=== PATIENT | female | born 1960 | race African-American/Black ===

== ENCOUNTER 2017-03-12 09:41 | Inpatient (IN) | payer MEDICAID, OTHER ==
[~2017-03-12] VITALS: Ht 149.9 cm; Wt 50.3 kg
[~2017-03-12 09:41] MED LIST: ASPI-825 PO; ATEN50TA PO; CLON0.3T PO; HYDR25TA PO; ISOS30TA6 PO; NITR0.4T10 SL; OLAN5TAB2 PO; QUET200T PO
[2017-03-12 12:02] LABS: BASOPHILS % (AUTO) 0.5 % (0.0-2.0); EOSINOPHILS % (AUTO) 2.5 % (1.0-6.0); HEMATOCRIT 36.4 % (36-46); HEMOGLOBIN 12.5 g/dL (12.0-16.0); LYMPHOCYTES # (AUTO) 2.6 K/uL (1.0-4.8); LYMPHOCYTES % (AUTO) 32.8 % (22.0-44.0); MEAN CORPUSCULAR HEMOGLOBIN 32.1 pg (26.0-34.0); MEAN CORPUSCULAR HGB CONC 34.4 G/dL (31.0-37.0); MEAN CORPUSCULAR VOLUME 93 fL (80-100); MONOCYTES # (AUTO) 0.7 K/uL (0.1-1.0); MONOCYTES % (AUTO) 8.4 % (2.0-9.0); NEUTROPHILS # (AUTO) 4.5 K/uL (1.8-7.7); NEUTROPHILS % (AUTO) 55.8 % (40.0-70.0); PLATELET COUNT (AUTO) 333 K/uL (150-450); RED CELL DISTRIBUTION WIDTH 15.1 % (11.5-14.5); WHITE BLOOD COUNT (AUTO) 8.1 K/uL (4.5-11.0)
[2017-03-12 12:03] LABS: APPEARANCE,URINE CLEAR (CLEAR); GLUCOSE, URINE (UA) NEGATIVE (NEGATIVE); KETONES,URINE NEGATIVE (NEGATIVE); LEUKOCYTE ESTERASE ,URINE SMALL (NEGATIVE); OCCULT BLOOD,URINE NEGATIVE (NEGATIVE); PH,URINE 5.5 (5.0-8.0); PROTEIN,URINE NEGATIVE (NEGATIVE)
[2017-03-12 12:12] LABS: ADD UA MICROSCOPIC YES
[2017-03-12 12:14] LABS: INR 0.9 (0.9-1.1); PROTHROMBIN TIME 9.7 SEC (9.4-11.6)
[2017-03-12 12:27] LABS: ANION GAP 14 mmol/L (8-16); CALCIUM, TOTAL 9.3 mg/dL (8.8-10.5); CARBON DIOXIDE 19 mmol/L (22-29); CHLORIDE 107 mmol/L (98-107); CREATININE 1.99 mg/dL (0.60-1.30); GLOMERULAR FILTR. RATE CALC 31 mL/min (>60); POTASSIUM 3.9 mmol/L (3.5-5.1); SODIUM SERUM 140 mmol/L (136-145); UREA NITROGEN, BLOOD 33 mg/dL (7-18)
[2017-03-12 12:28] LABS: RBC,URINE None Seen /HPF (0-2); SQUAMOUS EPITHELIAL CELL,UR None Seen /LPF (None Seen)
[2017-03-12] MEDS ORDERED: SODIUM CHLORIDE 0.9% 500 ML IV ONE (12:45)
[2017-03-12 12:46] LABS: ALANINE AMINOTRANSFERASE 69 U/L (12-78); ALBUMIN 3.9 g/dL (3.4-5.0); ASPARTATE AMINOTRANSFERASE 35 U/L (15-37); BILIRUBIN,TOTAL 0.2 mg/dL (0.1-1.0); CREATINE KINASE MB 0.7 ng/mL (0-5); CREATINE KINASE, TOTAL 163 U/L (26-192); TOTAL PROTEIN, SERUM 8.8 g/dL (6.4-8.2)
[2017-03-12] MEDS ORDERED: ALBUTEROL SULFATE 2.5 MG/0.5 ML NEB SOLUTION NEB PRN (13:45)
[2017-03-12] MEDS ORDERED: ONDANSETRON HCL 4 MG/2 ML VIAL IVP PRN (13:45)
[2017-03-12] MEDS ORDERED: MAGNESIUM HYDROXIDE SUSPENSION 30 ML UDCUP PO PRN (13:45)
[2017-03-12 13:50] LABS: THYROID STIMULATING HORMONE 0.85 uIU/mL (0.36-3.74)
[2017-03-12 15:29] VITALS: BP 118/64
[2017-03-12] MEDS: HEPARIN SODIUM,PORCINE 5,000 UNITS/ML VIAL SQ SCH ×2 (16:56→23:30)
[2017-03-12 19:34] VITALS: BP 120/69
[2017-03-12] MEDS: DOCUSATE SODIUM 100 MG CAPSULE PO SCH (21:00)
[2017-03-12] MEDS ORDERED: DiphenhydrAMINE HCL 25 MG CAPSULE PO PRN (21:30)
[2017-03-12] MEDS ORDERED: OLANZapine 7.5 MG TABLET PO SCH (21:30)
[2017-03-12] MEDS: ALPRAZolam 0.25 MG TABLET PO SCH (21:42)
[2017-03-12] MEDS: QUEtiapine FUMARATE 200 MG TABLET PO SCH (21:43)
[2017-03-12] MEDS: MIRTAZAPINE 15 MG TABLET PO SCH (22:01)
[2017-03-12 23:51] VITALS: BP 85/47
[2017-03-13] VITALS (10 sets, daily range): BP systolic 90–110; BP diastolic 50–71
[2017-03-13] MEDS ORDERED: DILT120T PO (02:34)
[2017-03-13] MEDS ORDERED: MEGE40TA PO (02:47)
[2017-03-13] MEDS ORDERED: VITAD1000 PO (02:47)
[2017-03-13] MEDS ORDERED: NITR0.4T50 SL (02:47)
[2017-03-13] MEDS ORDERED: LISI-618 PO (02:47)
[2017-03-13] MEDS ORDERED: MIRT15 PO (02:47)
[2017-03-13] MEDS ORDERED: ALPR0.5T8 PO (02:47)
[2017-03-13] MEDS ORDERED: DIPH25CA85 PO (02:47)
[2017-03-13] MEDS ORDERED: LEVO50 PO (02:47)
[2017-03-13] MEDS ORDERED: BENA20TA3 PO (02:47)
[2017-03-13] MEDS ORDERED: METO100XL PO (02:47)
[2017-03-13] MEDS ORDERED: FURO20TA4 PO (02:47)
[2017-03-13] MEDS: HEPARIN SODIUM,PORCINE 5,000 UNITS/ML VIAL SQ SCH ×2 (08:00→16:00)
[2017-03-13] MEDS: DOCUSATE SODIUM 100 MG CAPSULE PO SCH ×2 (09:00→20:44)
[2017-03-13] MEDS: PANTOPRAZOLE SODIUM 40 MG DR TABLET PO SCH (09:04)
[2017-03-13] MEDS: ALPRAZolam 0.25 MG TABLET PO SCH ×2 (09:04→20:45)
[2017-03-13] MEDS: ACETAMINOPHEN 325 MG TABLET PO PRN (17:58)
[2017-03-13] MEDS: QUEtiapine FUMARATE 200 MG TABLET PO SCH (20:44)
[2017-03-13] MEDS: MIRTAZAPINE 15 MG TABLET PO SCH (20:45)
[2017-03-13] MEDS ORDERED: OLANZapine 5 MG TABLET PO SCH (21:00)
[2017-03-14 00:10] VITALS: BP 92/61
[2017-03-14] MEDS: HEPARIN SODIUM,PORCINE 5,000 UNITS/ML VIAL SQ SCH ×2 (00:18→08:00)
[2017-03-14 04:19] VITALS: BP 98/58
[2017-03-14 06:33] LABS: EOSINOPHILS % (AUTO) 3.5 % (1.0-6.0); HEMATOCRIT 32.6 % (36-46); HEMOGLOBIN 11.1 g/dL (12.0-16.0); LYMPHOCYTES # (AUTO) 2.6 K/uL (1.0-4.8); MEAN CORPUSCULAR HEMOGLOBIN 32.3 pg (26.0-34.0); MEAN CORPUSCULAR HGB CONC 34.1 G/dL (31.0-37.0); MEAN CORPUSCULAR VOLUME 95 fL (80-100); MONOCYTES # (AUTO) 0.8 K/uL (0.1-1.0); MONOCYTES % (AUTO) 12.4 % (2.0-9.0); NEUTROPHILS # (AUTO) 2.5 K/uL (1.8-7.7); NEUTROPHILS % (AUTO) 41.1 % (40.0-70.0); PLATELET COUNT (AUTO) 265 K/uL (150-450); RED BLOOD CELL COUNT(AUTO) 3.44 MIL/uL (4.00-5.20); RED CELL DISTRIBUTION WIDTH 15.1 % (11.5-14.5); WHITE BLOOD COUNT (AUTO) 6.2 K/uL (4.5-11.0)
[2017-03-14 07:00] LABS: ALBUMIN 2.8 g/dL (3.4-5.0); BILIRUBIN,TOTAL 0.1 mg/dL (0.1-1.0); CALCIUM, TOTAL 8.3 mg/dL (8.8-10.5); CREATININE 1.64 mg/dL (0.60-1.30); POTASSIUM 3.7 mmol/L (3.5-5.1); TOTAL PROTEIN, SERUM 6.3 g/dL (6.4-8.2)
[2017-03-14 07:38] VITALS: BP 128/75
[2017-03-14 08:38] VITALS: BP 124/81
[2017-03-14] MEDS ORDERED: IOHEXOL 300 MG/ML 50 ML VIAL ONE (08:38)
[2017-03-14] MEDS ORDERED: LIDOCAINE HCL/PF 1% 30 ML VIAL ONE (08:38)
[2017-03-14] MEDS ORDERED: FentaNYL CITRATE-PF 100 MCG/2 ML VIAL ONE ×2 (08:39→09:37)
[2017-03-14] MEDS ORDERED: MIDAZOLAM HCL 2 MG/2 ML VIAL ONE ×2 (08:39→09:37)
[2017-03-14] MEDS: DOCUSATE SODIUM 100 MG CAPSULE PO SCH (08:41)
[2017-03-14] MEDS ORDERED: SODIUM CHLORIDE 0.9% 500 ML IV ONE (09:05)
[2017-03-14] MEDS ORDERED: FentaNYL CITRATE-PF 100 MCG/2 ML VIAL IVP ONE ×2 (09:25→09:31)
[2017-03-14] MEDS ORDERED: MIDAZOLAM HCL 2 MG/2 ML VIAL IVP ONE ×2 (09:25→09:31)
[2017-03-14] MEDS ORDERED: LIDOCAINE HCL/PF 1% 30 ML VIAL INJ ONE (09:31)
[2017-03-14 09:54] VITALS: BP 142/76
[2017-03-14] MEDS: ALPRAZolam 0.25 MG TABLET PO SCH (10:35)
[2017-03-14] MEDS: PANTOPRAZOLE SODIUM 40 MG DR TABLET PO SCH (10:35)
[2017-03-14 11:54] VITALS: BP 129/73
[2017-03-14] MEDS: ACETAMINOPHEN 325 MG TABLET PO PRN ×2 (13:11→14:21)
[2017-03-14] MEDS ORDERED: HYDROCODONE/ACETAMINOPHEN 5-325 MG TABLET PO PRN (14:30)
[2017-03-14] MEDS ORDERED: CeFAZolin 1 GM/DEXTROSE 50 ML IV ONE (15:00)
== END 2017-03-14 14:45 | disposition home or self-care (01) | DRG 201 ==
LOC: EMS 09:42 → 5N 13:16
PROVIDERS: ADMIT Internal Medicine; ATTEND Internal Medicine
PROC: 0JH632Z Insertion of Monitoring Device into Chest Subcutaneous Tissue and Fascia, Percutaneous Approach (ICD-10-PCS; principal; 2017-03-14)
DX: I49.9 Cardiac arrhythmia, unspecified (principal); N17.9 Acute kidney failure, unspecified; E44.0 Moderate protein-calorie malnutrition; I49.5 Sick sinus syndrome; I13.0 Hypertensive heart and chronic kidney disease with heart failure and stage 1 through stage 4 chronic kidney disease, or unspecified chronic kidney disease; I50.9 Heart failure, unspecified; N18.3 Chronic kidney disease, stage 3 (moderate); F20.9 Schizophrenia, unspecified; I35.1 Nonrheumatic aortic (valve) insufficiency; B19.20 Unspecified viral hepatitis C without hepatic coma; J44.9 Chronic obstructive pulmonary disease, unspecified; F31.9 Bipolar disorder, unspecified; E78.00 Pure hypercholesterolemia, unspecified; E03.9 Hypothyroidism, unspecified; F17.210 Nicotine dependence, cigarettes, uncomplicated; Z90.49 Acquired absence of other specified parts of digestive tract; Z88.8 Allergy status to other drugs, medicaments and biological substances; Z88.5 Allergy status to narcotic agent; Z79.899 Other long term (current) drug therapy; Z79.82 Long term (current) use of aspirin; Z89.422 Acquired absence of other left toe(s); Z91.19 Patient's noncompliance with other medical treatment and regimen; Z68.22 Body mass index [BMI] 22.0-22.9, adult
CPT/HCPCS: 33282; 70450; 83735; 84443; 93005; 93306; 96360; 96361; 99285; J0690; J1644; J2250; J3010; J3490; J7040; Q9967

== ENCOUNTER 2017-06-02 15:44 | Inpatient (IN) | payer MEDICAID ==
[~2017-06-02] VITALS: Ht 149.9 cm; Wt 54.5 kg
[~2017-06-02 15:44] MED LIST changes: +ALPR0.5T8 PO; -ATEN50TA PO; -CLON0.3T PO; +DIPH25CA85 PO; -HYDR25TA PO; -ISOS30TA6 PO; +LEVO50 PO; +MIRT15 PO; -NITR0.4T10 SL; -OLAN5TAB2 PO; +VITAD1000 PO
[2017-06-02] MEDS ORDERED: SODIUM CHLORIDE 0.9% 1,000 ML IV ONE ×2 (16:00→16:15)
[2017-06-02 16:38] LABS: BASOPHILS % (AUTO) 0.5 % (0.0-2.0); EOSINOPHILS % (AUTO) 11.8 % (1.0-6.0); HEMATOCRIT 39.1 % (36-46); HEMOGLOBIN 13.2 g/dL (12.0-16.0); LYMPHOCYTES # (AUTO) 2.1 K/uL (1.0-4.8); LYMPHOCYTES % (AUTO) 15.2 % (22.0-44.0); MEAN CORPUSCULAR HEMOGLOBIN 31.7 pg (26.0-34.0); MEAN CORPUSCULAR HGB CONC 33.7 G/dL (31.0-37.0); MEAN CORPUSCULAR VOLUME 94 fL (80-100); MONOCYTES # (AUTO) 1.3 K/uL (0.1-1.0); MONOCYTES % (AUTO) 9.4 % (2.0-9.0); NEUTROPHILS # (AUTO) 8.6 K/uL (1.8-7.7); NEUTROPHILS % (AUTO) 63.1 % (40.0-70.0); PLATELET COUNT (AUTO) 329 K/uL (150-450); RED BLOOD CELL COUNT(AUTO) 4.16 MIL/uL (4.00-5.20); RED CELL DISTRIBUTION WIDTH 15.2 % (11.5-14.5)
[2017-06-02 16:59] LABS: ANION GAP 16 mmol/L (8-16); CALCIUM, TOTAL 9.5 mg/dL (8.8-10.5); CARBON DIOXIDE 15 mmol/L (22-29); CHLORIDE 100 mmol/L (98-107); CREATININE 3.29 mg/dL (0.60-1.30); GLOMERULAR FILTR. RATE CALC 17 mL/min (>60); GLUCOSE,RANDOM 88 mg/dL (70-110); POTASSIUM 4.5 mmol/L (3.5-5.1); SODIUM SERUM 131 mmol/L (136-145); UREA NITROGEN, BLOOD 39 mg/dL (7-18)
[2017-06-02 17:07] LABS: LACTIC ACID 1.6 mmol/L (0.4-2.0)
[2017-06-02 17:15] LABS: PROTHROMBIN TIME 10.2 SEC (9.4-11.6)
[2017-06-02 17:23] LABS: ALANINE AMINOTRANSFERASE 27 U/L (12-78); ALBUMIN 3.4 g/dL (3.4-5.0); ALKALINE PHOSPHATASE 136 U/L (46-116); ASPARTATE AMINOTRANSFERASE 20 U/L (15-37); BILIRUBIN,TOTAL 0.1 mg/dL (0.1-1.0); CREATINE KINASE MB 1.4 ng/mL (0-5); CREATINE KINASE, TOTAL 160 U/L (26-192); LIPASE 471 U/L (73-393); TOTAL PROTEIN, SERUM 8.7 g/dL (6.4-8.2)
[2017-06-02 17:43] LABS: B-TYPE NATRIURETIC PEPTIDE 16 pg/mL (0-100)
[2017-06-02] MEDS ORDERED: BARIUM SULFATE 0.1% SUSPENSION 450 ML BOTTLE PO ONE (18:00)
[2017-06-02 18:09] LABS: BILIRUBIN,URINE NEGATIVE (NEGATIVE); GLUCOSE, URINE (UA) NEGATIVE (NEGATIVE); KETONES,URINE NEGATIVE (NEGATIVE); LEUKOCYTE ESTERASE ,URINE MODERATE (NEGATIVE); NITRATE,URINE NEGATIVE (NEGATIVE); OCCULT BLOOD,URINE NEGATIVE (NEGATIVE); PH,URINE 5.5 (5.0-8.0); PROTEIN,URINE NEGATIVE (NEGATIVE); UROBILINOGEN,URINE 0.2 mg/dL (<=1.0)
[2017-06-02 18:27] LABS: APPEARANCE,URINE SLIGHTLY CLOUDY (CLEAR); BACTERIA,URINE Few /HPF (None Seen); RBC,URINE None Seen /HPF (0-2); SQUAMOUS EPITHELIAL CELL,UR Moderate /LPF (None Seen)
[2017-06-02] MEDS ORDERED: 0.9% SODIUM CHLORIDE 10 ML SYRINGE IVP PRN (21:30)
[2017-06-02] MEDS ORDERED: ACETAMINOPHEN 325 MG TABLET PO PRN (21:30)
[2017-06-02] MEDS ORDERED: ONDANSETRON HCL 4 MG/2 ML VIAL IVP PRN (21:30)
[2017-06-03] MEDS ORDERED: CIPROFLOXACIN 400 MG/D5% WATER 200 ML IV ONE (03:30)
[2017-06-03] MEDS ORDERED: ACETAMINOPHEN 325 MG TABLET PO PRN (03:30)
[2017-06-03] MEDS: LEVOTHYROXINE SODIUM 50 MCG TABLET PO SCH (06:33)
[2017-06-03] MEDS: ALPRAZolam 0.5 MG TABLET PO SCH ×2 (10:37→20:31)
[2017-06-03] MEDS: ASPIRIN 81 MG CHEWABLE TABLET PO SCH (10:38)
[2017-06-03] MEDS ORDERED: ONDANSETRON HCL 4 MG/2 ML VIAL IVP PRN (11:00)
[2017-06-03 11:06] LABS: BASOPHILS # (AUTO) 0.06 K/uL (0.00-0.20); BASOPHILS % (AUTO) 0.6 % (0.0-2.0); EOSINOPHILS # (AUTO) 1.38 K/uL (0.00-0.70); EOSINOPHILS % (AUTO) 12.92 % (1.0-6.0); HEMATOCRIT 34.8 % (36-46); HEMOGLOBIN 11.4 g/dL (12.0-16.0); LYMPHOCYTES # (AUTO) 1.8 K/uL (1.0-4.8); LYMPHOCYTES % (AUTO) 17.2 % (22.0-44.0); MEAN CORPUSCULAR HGB CONC 32.8 G/dL (31.0-37.0); MEAN CORPUSCULAR VOLUME 94 fL (80-100); MONOCYTES # (AUTO) 1.1 K/uL (0.1-1.0); MONOCYTES % (AUTO) 10.6 % (2.0-9.0); NEUTROPHILS # (AUTO) 6.3 K/uL (1.8-7.7); NEUTROPHILS % (AUTO) 58.8 % (40.0-70.0); PLATELET COUNT (AUTO) 309 K/uL (150-450); RED BLOOD CELL COUNT(AUTO) 3.69 MIL/uL (4.00-5.20)
[2017-06-03 11:18] VITALS: BP 105/75
[2017-06-03 11:24] LABS: ALBUMIN 2.9 g/dL (3.4-5.0); BILIRUBIN,TOTAL 0.2 mg/dL (0.1-1.0); CREATININE 1.98 mg/dL (0.60-1.30); POTASSIUM 4.3 mmol/L (3.5-5.1); TOTAL PROTEIN, SERUM 7.4 g/dL (6.4-8.2)
[2017-06-03] MEDS: PANTOPRAZOLE SODIUM 40 MG/VIAL IVP SCH (11:35)
[2017-06-03] MEDS: DEXTROSE 5%-0.9% SODIUM CHL 1,000 ML IV SCH (11:36)
[2017-06-03] MEDS ORDERED: LEVOFLOXACIN 250 MG/D5% WATER 50 ML IV SCH (13:00)
[2017-06-03] MEDS: MetroNIDAZOLE 500 MG TABLET PO SCH ×2 (16:02→20:31)
[2017-06-03 16:23] VITALS: BP 123/79
[2017-06-03 20:12] VITALS: BP 125/72
[2017-06-03] MEDS ORDERED: QUEtiapine FUMARATE 200 MG TABLET PO SCH (21:00)
[2017-06-03] MEDS ORDERED: MIRTAZAPINE 15 MG TABLET PO SCH (21:00)
[2017-06-03 21:37] LABS: APPEARANCE,URINE CLEAR (CLEAR); BILIRUBIN,URINE NEGATIVE (NEGATIVE); CREATININE,URINE RANDOM 57.4 mg/dL (30.0-125.0); GLUCOSE, URINE (UA) NEGATIVE (NEGATIVE); KETONES,URINE NEGATIVE (NEGATIVE); LEUKOCYTE ESTERASE ,URINE NEGATIVE (NEGATIVE); NITRATE,URINE NEGATIVE (NEGATIVE); OCCULT BLOOD,URINE NEGATIVE (NEGATIVE); SODIUM,URINE RANDOM 47 mmol/l (20-110); UREA NITROGEN,URINE RANDOM 379 mg/dL (350-1000); UROBILINOGEN,URINE 0.2 mg/dL (<=1.0)
[2017-06-03 21:39] LABS: AMPHET/METH SCREEN,URINE NEGATIVE (NEGATIVE); BARBITURATE SCREEN, URINE NEGATIVE (NEGATIVE); BENZODIAZEPINES SCREEN,URINE POSITIVE (NEGATIVE); CANNABINOID SCREEN,URINE POSITIVE (NEGATIVE); COCAINE SCREEN,URINE NEGATIVE (NEGATIVE); METHADONE SCREEN, URINE NEGATIVE (NEGATIVE); OPIATE SCREEN,URINE NEGATIVE (NEGATIVE)
[2017-06-03 21:40] LABS: PHENCYCLIDINE SCREEN,URINE NEGATIVE (NEGATIVE)
[2017-06-03 21:44] LABS: PROTEIN,URINE NEGATIVE (NEGATIVE)
[2017-06-03 21:45] LABS: BACTERIA,URINE None Seen /HPF (None Seen); RBC,URINE None Seen /HPF (0-2); WBC,URINE None Seen /HPF (0-5)
[2017-06-03 21:46] LABS: SQUAMOUS EPITHELIAL CELL,UR Rare /LPF (None Seen)
[2017-06-04] MEDS: DEXTROSE 5%-0.9% SODIUM CHL 1,000 ML IV SCH (00:06)
[2017-06-04 00:23] VITALS: BP 153/88
[2017-06-04 05:20] VITALS: BP 132/69
[2017-06-04] MEDS: LEVOTHYROXINE SODIUM 50 MCG TABLET PO SCH (05:32)
[2017-06-04 07:15] VITALS: BP 145/80
[2017-06-04 07:27] LABS: BASOPHILS # (AUTO) 0.03 K/uL (0.00-0.20); BASOPHILS % (AUTO) 0.3 % (0.0-2.0); EOSINOPHILS # (AUTO) 0.95 K/uL (0.00-0.70); HEMATOCRIT 35.5 % (36-46); HEMOGLOBIN 11.7 g/dL (12.0-16.0); LYMPHOCYTES # (AUTO) 2.1 K/uL (1.0-4.8); LYMPHOCYTES % (AUTO) 25.4 % (22.0-44.0); MEAN CORPUSCULAR HEMOGLOBIN 31.3 pg (26.0-34.0); MEAN CORPUSCULAR HGB CONC 33.1 G/dL (31.0-37.0); MEAN CORPUSCULAR VOLUME 95 fL (80-100); MONOCYTES # (AUTO) 1.2 K/uL (0.1-1.0); NEUTROPHILS # (AUTO) 3.8 K/uL (1.8-7.7); NEUTROPHILS % (AUTO) 47.5 % (40.0-70.0); PLATELET COUNT (AUTO) 292 K/uL (150-450); RED BLOOD CELL COUNT(AUTO) 3.74 MIL/uL (4.00-5.20)
[2017-06-04 07:42] LABS: ALBUMIN 2.7 g/dL (3.4-5.0); CREATININE 1.62 mg/dL (0.60-1.30); MAGNESIUM 1.7 mg/dL (1.80-2.40); POTASSIUM 4.2 mmol/L (3.5-5.1)
[2017-06-04] MEDS ORDERED: MAGNESIUM SULFATE 1 GM in DEXTROSE 5%-WATER 50 ML IV ONE (08:00)
[2017-06-04 08:06] LABS: THYROID STIMULATING HORMONE 3.84 uIU/mL (0.36-3.74)
[2017-06-04 08:08] LABS: BILIRUBIN,TOTAL 0.1 mg/dL (0.1-1.0)
[2017-06-04] MEDS: MetroNIDAZOLE 500 MG TABLET PO SCH (10:19)
[2017-06-04] MEDS: PANTOPRAZOLE SODIUM 40 MG/VIAL IVP SCH (10:19)
[2017-06-04] MEDS: ASPIRIN 81 MG CHEWABLE TABLET PO SCH (10:19)
[2017-06-04] MEDS: ALPRAZolam 0.5 MG TABLET PO SCH (10:19)
[2017-06-04] MEDS ORDERED: CIPR500S5 PO (11:49)
[2017-06-04] MEDS ORDERED: METR250T PO (11:50)
[2017-06-04 11:57] VITALS: BP 138/79
== END 2017-06-04 12:05 | disposition home or self-care (01) | DRG 720 ==
LOC: EMS 15:47 → UNDOADMIN 06-03 05:23 → 5S 06-03 05:23 → 6N 06-03 09:14
PROVIDERS: ADMIT Internal Medicine; ATTEND Internal Medicine
DX: A41.9 Sepsis, unspecified organism (principal); N17.1 Acute kidney failure with acute cortical necrosis; I42.9 Cardiomyopathy, unspecified; E87.1 Hypo-osmolality and hyponatremia; F20.9 Schizophrenia, unspecified; K52.9 Noninfective gastroenteritis and colitis, unspecified; F31.9 Bipolar disorder, unspecified; E03.9 Hypothyroidism, unspecified; F17.210 Nicotine dependence, cigarettes, uncomplicated; E86.0 Dehydration; F41.9 Anxiety disorder, unspecified; E78.00 Pure hypercholesterolemia, unspecified; N39.0 Urinary tract infection, site not specified; I12.9 Hypertensive chronic kidney disease with stage 1 through stage 4 chronic kidney disease, or unspecified chronic kidney disease; F10.20 Alcohol dependence, uncomplicated; B19.20 Unspecified viral hepatitis C without hepatic coma; E55.9 Vitamin D deficiency, unspecified; N18.9 Chronic kidney disease, unspecified; Z88.5 Allergy status to narcotic agent; Z79.82 Long term (current) use of aspirin; Z79.899 Other long term (current) drug therapy; Z90.49 Acquired absence of other specified parts of digestive tract; Z89.022 Acquired absence of left finger(s)
CPT/HCPCS: 74176; 76770; 82570; 83605; 83735; 84100; 84300; 84443; 84540; 87040; 87086; 93005; 93306; 96361; 96365; 99285; C9113; G0480; J0744; J1956; J2405; J3475; J7042; J7060